=== PATIENT | female | born 1955 | race Caucasian/White ===

== ENCOUNTER 2017-04-22 03:28 | Outpatient (CLI) | payer BC | END 2017-04-22 03:29 | disposition EMS.NT | DX: M79.601 Pain in right arm (principal); W57.XXXA Bitten or stung by nonvenomous insect and other nonvenomous arthropods, initial encounter ==

== ENCOUNTER 2017-04-22 04:16 | Emergency (ER) | payer BC ==
[2017-04-22] MEDS ORDERED: DOXYCYCLINE 100 MG TABLET PO STA (05:03)
[2017-04-22] MEDS ORDERED: DOXYCYCLINE 100 MG TABLET PO ONE (05:08)
== END 2017-04-22 05:13 | disposition home or self-care (01) ==
DX: L03.113 Cellulitis of right upper limb (principal); I10 Essential (primary) hypertension
CPT/HCPCS: 99283; A9270

== ENCOUNTER 2017-05-07 09:38 | Outpatient (CLI) | payer BC ==
--- NOTE | 2017-05-09 08:26 | DEXA Report ---
DEXA BONE MINERAL DENSITY SCAN: 05/07/2017 CLINICAL HISTORY: A 61-year-old postmenopausal female. TECHNIQUE: Dual energy x-ray absorptiometry (DXA) was performed on a [employer] system. Regions measured are the AP spine, femoral neck, and, if needed, forearm. COMPARISON: None. In accordance with the International Society for Clinical Densitometry (ISCD) guidelines, data from previous exams may be reanalyzed using current recommendations and techniques. This is done to allow a more accurate basis for comparison with the current study. FINDINGS: The data for the lumbar spine is as follows: REGION BMD (g/cm/cm) T-SCORE Z-SCORE L1 1.022 -0.9 0.0 L2 1.068 -1.1 -0.2 L3 1.299 0.8 1.7 L4 1.454 2.1 3.0 TOTAL 1.229 0.4 1.3 NOTE: All evaluable vertebrae are used for classification. The data for the hip is as follows: REGION BMD (g/cm/cm) T-SCORE Z-SCORE Neck 1.005 -0.2 0.8 TOTAL 0.963 -0.4 0.3 NOTE: The femoral neck or total proximal femur, whichever is lowest, is used for classification. IMPRESSION: THE WHO CLASSIFICATION BASED ON THE INTERNATIONAL REFERENCE STANDARD IS NORMAL. THE FRACTURE RISK IS NOT INCREASED. RECOMMENDATION: Patients with diagnosis of osteoporosis or osteopenia should have regular bone mineral density assessment. For those eligible for Medicare, routine testing is allowed once every 2 years. Testing frequency can be increased for patients who have rapidly progressing disease or for those who are receiving medical therapy to restore bone mass. COMMENT: World Health Organization (WHO) definitions for osteoporosis and osteopenia: NORMAL BMD: T-score at -1.0 or higher, fracture risk is low. OSTEOPENIA BMD: T-score between -1.0 and -2.5, fracture risk is increased. OSTEOPOROSIS BMD: T-score at -2.5 or lower, fracture risk high. National Osteoporosis Foundation recommends: 1. Obtain adequate dietary calcium (at least 1200 mg per day) and vitamin D (400 -800 international units per day). 2. Participate, as appropriate, in regular weightbearing and muscle- strengthening exercise. 3. Avoid tobacco use and reduce alcohol and caffeine intake. 4. For more detailed information see the website at www.NOF.org. MTDD
== END 2017-05-07 09:39 | disposition home or self-care (01) ==
LOC: DI 09:38
PROVIDERS: ATTEND Physician Assistant
DX: Z78.0 Asymptomatic menopausal state (principal); R29.890 Loss of height
CPT/HCPCS: 77080

== ENCOUNTER 2017-05-07 09:39 | Outpatient (CLI) | payer BC ==
--- NOTE | 2017-05-09 07:50 | Mammography Report ---
DIGITAL BILATERAL SCREENING MAMMOGRAM: 05/07/2017 CLINICAL HISTORY: A 61-year-old female in for routine screening mammogram. Patient indicates a fami ly history of breast cancer. Her sister had breast cancer at age 50. She had a paternal aunt with b reast cancer at age 80. Patient has had no prior breast surgeries. COMPARISON: 11/28/2005, 03/15/2008, 03/23/2008, 09/19/2008, 05/16/2015, 05/31/2015 TECHNIQUE: Craniocaudad and oblique lateral views of each breast were obtained with [employer] [facility] digital mammography. FINDINGS: Breast parenchyma consists of scattered fibroglandular densities. No significant clusters of calcification are seen. No significant masses are noted. No significant change is detected. IMPRESSION: BREASTS APPEAR RADIOGRAPHICALLY BENIGN. BIRADS CATEGORY 1 - NEGATIVE. RECOMMENDATIONS: Annual bilateral screening mammography. STANDARD QUALIFYING STATEMENTS 1. This examination was reviewed with the aid of Computer-Aided Detection (CAD). 2. A negative or benign imaging report should not delay biopsy if clinically suspicious findings are present. Consider surgical consultation if warranted. More than 5% of cancers are not identified by i juan. 3. Dense breasts may obscure an underlying neoplasm. JOB #: [id number] EXT JOB #:[id number]
== END 2017-05-07 09:40 | disposition home or self-care (01) ==
LOC: DI 09:39
PROVIDERS: ATTEND Physician Assistant
DX: Z12.31 Encounter for screening mammogram for malignant neoplasm of breast (principal); Z80.3 Family history of malignant neoplasm of breast
CPT/HCPCS: 77067

== ENCOUNTER 2018-09-30 09:25 | Outpatient (CLI) | payer OTHER ==
--- NOTE | 2018-10-01 09:29 | Mammography Report ---
Reason: ENCOUNTER FOR SCREENING MAMMOGRAM FOR MALIGNANT NE Procedure Date: 09/30/2018 Accession Number: [id number] / [id number] Procedure: [facility] - Screening Mammo w/Filippo CPT Code: FULL RESULT: EXAM: Screening Mammo w/Filippo DATE: 09/30/2018 9:48 AM CLINICAL HISTORY: Screening encounter. Family history of breast cancer in the sister at age 52. TECHNIQUE: Bilateral CC and MLO views were obtained. COMPARISON: 05/07/2017 through 05/08/2015. FINDINGS: The breasts demonstrate scattered fibroglandular densities bilaterally. There are typically benign vascular calcifications. No suspicious masses, clustered microcalcifications, or regions of architectural distortion are identified. IMPRESSION: Benign findings RECOMMENDATION: Routine annual screening unless otherwise clinically indicated. BIRADS CATEGORY 2: Benign findings STANDARD QUALIFYING STATEMENTS: 1. This examination was not reviewed with the aid of Computer-Aided Detection (CAD). 2. A negative or benign imaging report should not preclude biopsy if clinically suspicious findings are present. 3. Dense breasts may obscure an underlying neoplasm. 4. This examination was reviewed with the aid of 3D breast imaging (tomosynthesis).
== END 2018-09-30 09:26 | disposition home or self-care (01) ==
LOC: DI 09:25
PROVIDERS: ATTEND Physician Assistant
DX: Z12.31 Encounter for screening mammogram for malignant neoplasm of breast (principal); Z80.3 Family history of malignant neoplasm of breast
CPT/HCPCS: 77063; 77067